=== PATIENT | male | born 1965 | race Caucasian/White ===

== ENCOUNTER → 2023-12-26 19:57 | Outpatient (REF) | payer OTHER, SELFPAY | LOC: MRI 19:57 | PROVIDERS: ATTENDING PHYSICIAN Otolaryngology; FAMILY PHYSICIAN Family Medicine | DX: H90.A21 Sensorineural hearing loss, unilateral, right ear, with restricted hearing on the contralateral side (principal) | CPT/HCPCS: 70553; A9575 ==

== ENCOUNTER → 2024-04-23 17:49 | Outpatient (REF) | payer OTHER, SELFPAY | LOC: MRI 17:49 | PROVIDERS: ATTENDING PHYSICIAN Physical Medicine & Rehabilitation; FAMILY PHYSICIAN Family Medicine | DX: S39.012A Strain of muscle, fascia and tendon of lower back, initial encounter (principal); M54.50 Low back pain, unspecified | CPT/HCPCS: 73721 ==